=== PATIENT | female | born 2000 | race Caucasian/White ===

== ENCOUNTER 2022-02-17 19:51 | Emergency (ER) | payer BC ==
[~2022-02-17] VITALS: Ht 170.2 cm; Wt 49.4 kg
== END 2022-02-17 22:02 | disposition left against medical advice (07) ==
LOC: M ED 19:51
DX: Z53.29 Procedure and treatment not carried out because of patient's decision for other reasons (principal)

== ENCOUNTER → 2022-02-27 | Outpatient (CLI) | payer OTHER | LOC: M WHC 15:03 | PROVIDERS: ATTEND Physician Assistant Medical | DX: M54.50 Low back pain, unspecified (principal); M25.559 Pain in unspecified hip ==